=== PATIENT | male | born 1995 | race Caucasian/White ===

== ENCOUNTER 2020-11-15 19:51 | Emergency (ER) | payer MEDICAID ==
[~2020-11-15] VITALS: Ht 180.3 cm; Wt 104.0 kg
[2020-11-15] MEDS ORDERED: acetaminophen 325mg tablet PO ONE (20:50)
[2020-11-15] MEDS ORDERED: dexamethasone 4mg tablet PO ONE (21:00)
[2020-11-15] MEDS ORDERED: DEXA6TAB6 PO (21:21)
--- NOTE | 2020-11-15 21:45 | NUR ---
PT SEEN AND ASSESSED BY PROVIDER
[2020-11-15 21:46] VITALS: BP 118/71
== END 2020-11-15 22:10 | disposition home or self-care (01) ==
LOC: ER 19:52
DX: U07.1 COVID-19 (principal); R09.02 Hypoxemia; J12.82 Pneumonia due to coronavirus disease 2019; R06.02 Shortness of breath; R50.9 Fever, unspecified; F17.200 Nicotine dependence, unspecified, uncomplicated; Z79.899 Other long term (current) drug therapy
CPT/HCPCS: 71045; 99283